=== PATIENT | male | born 1960 | race Caucasian/White ===

== ENCOUNTER → 2016-07-09 | Outpatient (CLI) | payer BC ==
[~2016-07-09] MED LIST: B/P MED; CLEOCIN HC150 MG/CAP PO; NORCO 325 MG-7.1 TAB PO; PERCOCET 325 MG1 TA2 PO; PRAVACHOL 40MG40 MG PO; PRAVACHOL10 MG; PRINZIDE 25 MG-1 TAB PO
== END ==
LOC: COL.VAS 09:15
DX: I73.89 Other specified peripheral vascular diseases (principal)

== ENCOUNTER → 2018-11-17 | Outpatient (CLI) | payer BC | LOC: COL.RAD 07:30 | DX: R59.9 Enlarged lymph nodes, unspecified (principal); Z87.891 Personal history of nicotine dependence | CPT/HCPCS: Q9967 ==

== ENCOUNTER → 2020-11-15 | Outpatient (CLI) | payer BC | LOC: COL.RAD 13:03 | DX: Z12.2 Encounter for screening for malignant neoplasm of respiratory organs (principal); Z87.891 Personal history of nicotine dependence ==